=== PATIENT | female | born 1950 | race Caucasian/White ===

== ENCOUNTER 2018-07-04 11:07 | Emergency (ER) | payer MEDICARE ==
[~2018-07-04] VITALS: Ht 162.6 cm; Wt 49.9 kg
[~2018-07-04 11:07] MED LIST: LIPITOR10 MG PO
[2018-07-04] MEDS ORDERED: INDOMETHACIN50 MG PO (13:33)
== END 2018-07-04 14:09 | disposition home or self-care (01) ==
LOC: ED 11:07
DX: S33.8XXA Sprain of other parts of lumbar spine and pelvis, initial encounter (principal); W18.30XA Fall on same level, unspecified, initial encounter; Z87.891 Personal history of nicotine dependence
CPT/HCPCS: 72220; 99283-25